=== PATIENT | male | born 1950 | race Caucasian/White ===

== ENCOUNTER 2018-01-19 05:30 | Observation (INO) | payer OTHER, MEDICARE ==
[2018-01-19] MEDS ORDERED: PHENYLEPHRINE HCL 100 MCG/ML SYR IVP PRN (05:58)
[2018-01-19] MEDS ORDERED: METOCLOPRAMIDE 10 MG/2 ML VIAL IVP PRN (05:58)
[2018-01-19] MEDS ORDERED: oxyCODONE IR 5 MG TAB PO PRN (05:58)
[2018-01-19] MEDS ORDERED: HYDROmorphONE/DILAUDID 2 MG/ML INJ IVP PRN (05:58)
[2018-01-19] MEDS ORDERED: ONDANSETRON 4 MG/2 ML VIAL IVP PRN ×2 (05:58→07:26)
[2018-01-19] MEDS ORDERED: fentaNYL 100 MCG/2 ML INJ IVP PRN (05:58)
[2018-01-19] MEDS ORDERED: PROMETHAZINE HCL 25 MG/ML INJ IVP PRN (05:58)
[2018-01-19] MEDS ORDERED: NALOXONE HCL 0.4 MG/ML INJ IVP PRN (05:58)
[2018-01-19] MEDS ORDERED: GABAPENTIN 300 MG CAP PO ONE (06:06)
[2018-01-19] MEDS ORDERED: ceFAZolin 2 GM/DEXTROSE 100 ML IV ONE (06:06)
[2018-01-19] MEDS ORDERED: ACETAMINOPHEN 500 MG TAB PO ONE (06:06)
[2018-01-19] MEDS ORDERED: LR 1,000 ML IV ONE (06:07)
[2018-01-19] MEDS ORDERED: LIDOCAINE 1% 2 ML INJ ID PRN (06:07)
[2018-01-19] MEDS ORDERED: LIDOCAINE 2% 5 ML SDV ONE (06:22)
[2018-01-19] MEDS ORDERED: MIDAZOLAM 2 MG/2 ML VIAL ONE (06:22)
[2018-01-19] MEDS ORDERED: DEXAMETHASONE 4 MG/ML VIAL ONE (06:22)
[2018-01-19] MEDS ORDERED: ROCURONIUM 50 MG/5 ML VIAL ONE (06:22)
[2018-01-19] MEDS ORDERED: ONDANSETRON 4 MG/2 ML VIAL ONE (06:22)
[2018-01-19] MEDS ORDERED: PROPOFOL 200 MG/20 ML VIAL ONE (06:22)
[2018-01-19] MEDS ORDERED: fentaNYL 250 MCG/5 ML INJ ONE (06:22)
[2018-01-19] MEDS ORDERED: ACETAMINOPHEN 500 MG TAB ONE (06:30)
[2018-01-19] MEDS ORDERED: CHLORHEXIDINE GLUC HIBICLENS 118 ML BTL TP ONE (06:39)
[2018-01-19] MEDS ORDERED: BUPIVACAINE 0.25% 30 ML SDV ONE (06:39)
[2018-01-19] MEDS ORDERED: BACITRACIN 50,000 UNITS/10 ML SYR IRR ONE (06:40)
[2018-01-19] MEDS ORDERED: THROMBIN (BOVINE) 5,000 UNIT VIAL TP ONE (06:40)
[2018-01-19] MEDS ORDERED: EPINEPHrine 1 MG/ML INJ ONE (06:40)
[2018-01-19] MEDS ORDERED: SCOPOLAMINE HYDROBROMIDE 1 MG/3 DAYS PATCH TD SCH (06:45)
--- NOTE | 2018-01-19 06:46 | PDANEPAE ---
ANE Past Medical History - Cardiovascular History Hx Hypertension: No Hx Arrhythmias: No Hx Chest Pain: No Hx Coronary Artery / Peripheral Vascular Disease: No Hx CHF / Valvular Disease: No Hx Palpitations: No - Pulmonary History Hx COPD: No Hx Asthma/Reactive Airway Disease: No Hx Recent Upper Respiratory Infection: No Hx Oxygen in Use at Home: No Hx Sleep Apnea: Yes Sleep Apnea Screening Result - Last Documented: Positive Pulmonary History Comment: DENITA USES [employer]ARD - Neurologic History Hx Cerebrovascular Accident: No Hx Seizures: No Hx Dementia: No - Endocrine History Hx Diabetes: No - Renal History Hx Renal Disorders: Yes Renal History Comment: BPH - Liver History Hx Hepatic Disorders: No - Neurological & Psychiatric Hx Hx Neurological and Psychiatric Disorders: No - Cancer History Hx Cancer: No - Congenital Disorder History Hx Congenital Disorders: No - GI History Hx Gastrointestinal Disorders: No - Other Health History Other Health History: CERVICAL STENOSIS. NT RT ARM. LIMITED ROM RT SHLDR - Chronic Pain History Chronic Pain: Yes (N/T RT UPPER ARM,CERVICAL DISCOMFORT) - Surgical History Prior Surgeries: KELLIE SHLDR SCOPES ANE Review of Systems Review of Systems: - Exercise capacity METS (RN): 6 METS ANE Patient History - Allergies Allergies/Adverse Reactions: Penicillins Allergy (Verified 01/19/18 06:39) Rash - Home Medications Home Medications: Aspirin [Aspirin 81mg (*)] 81 mg PO DAILY 01/08/18 [Last Taken 01/12/18] Finasteride [Proscar 5 MG (*)] 5 mg PO DAILY 01/08/18 [Last Taken 01/18/18] - NPO status NPO Since - Liquids (Date): 01/18/18 NPO Since - Liquids (Time): 21:00 NPO Since - Solids (Date): 01/18/18 NPO Since - Solids (Time): 21:00 - Smoking Hx Smoking Status: Never smoked ANE Labs/Vital Signs - Vital Signs Height: 175.26 cm Weight: 70.307 kg ANE Physical Exam - Airway Neck exam: FROM Mallampati Score: Class 1 Mouth exam: normal dental/mouth exam - Pulmonary Pulmonary: no respiratory distress, no rales or rhonchi, clear to auscultation - Cardiovascular Cardiovascular: regular rate and rhythym, no murmur, rub, or gallop - ASA Status ASA Status: II ANE Anesthesia Plan Anesthesia Plan: general endotracheal anesthesia
[2018-01-19] MEDS ORDERED: PROPOFOL/EMULSION 500 MG/50 ML BOTTLE IV ONE ×2 (06:49→07:53)
--- NOTE | 2018-01-19 07:10 | PDHPUP ---
History & Physical Update H&P update statement: This history and physical update is based on an assessment of the patient which was completed after admission or registration (within 24 hours), but prior to the surgery/procedure. H&P update: H&P reviewed & patient examined, no change in patient's condition since H&P completed
[2018-01-19] MEDS ORDERED: BISACODYL 10 MG SUPP PR PRN (07:26)
[2018-01-19] MEDS ORDERED: POLYETHYLENE GLYCOL 3350 17 GM PKT PO PRN (07:26)
[2018-01-19] MEDS ORDERED: diphenhydrAMINE 25 MG CAP PO PRN (07:26)
[2018-01-19] MEDS ORDERED: ONDANSETRON DISINTEGRATING 4 MG TAB PO PRN (07:26)
[2018-01-19] MEDS ORDERED: MAGNESIUM HYDROXIDE 30 ML UDCUP PO PRN (07:26)
[2018-01-19] MEDS ORDERED: HYDROmorphONE/DILAUDID 1 MG/ML INJ IVP PRN (07:26)
[2018-01-19] MEDS ORDERED: LACTULOSE 20 GM/30 ML UDCUP PO PRN (07:26)
[2018-01-19] MEDS ORDERED: METHOCARBAMOL 750 MG TAB PO PRN (07:26)
[2018-01-19] MEDS ORDERED: NS 1,000 ML IV SCH (07:30)
[2018-01-19] MEDS ORDERED: ESMOLOL HCL 100 MG/10 ML VIAL IV ONE (07:53)
[2018-01-19] MEDS ORDERED: ePHEDrine SULFATE 25 MG/5 ML SYR ONE ×2 (07:53→08:25)
--- NOTE | 2018-01-19 09:28 | POSTOPPROG ---
Post Op Note Date of Operation: 01/19/18 Surgeon: Iveth Goncalves Program Director: FABIENNE Cordero Anesthesiologist: Zohaib Perales MD Anesthesia: GET(General Endotracheal), Local (Specify) Pre-op Diagnosis: cervical stenosis C4/5 Post-op Diagnosis: cervical stenosis C4/5 Indication: RUE pain, stenosis Procedure: ACDF C4/5 Findings: see op note Inf/Abcess present in the surg proc area at time of surgery?: No Depth: Deep Incisional (Fascial) EBL: 50-100 Total fluids administered: see anesthesia record Complications: none
--- NOTE | 2018-01-19 09:30 | SOAPPROG ---
SOAP Progress Note Assessment/Plan: Post Op Visit: S: Awake and alert, NAD. Pt with expected neck pain O: AFVSS/PERRLA/EOMI no droop CN 2-12 grossly intact +lt touch 5/5 BUE/BLE = CDI neck soft and supple A/P: 67 yo male that is s/p ACDF C4/5 -orders in place -call with any questions or concerns -collar at all times -post op xrays in am -plan for dc tomorrow when clears therapies ICD10 Worksheet Patient Problems: Problems Problem Status Onset Cervical spinal stenosis Acute S/P cervical spinal fusion Acute - ICD10 Problem Qualifiers (1) Cervical spinal stenosis (2) S/P cervical spinal fusion
--- NOTE | 2018-01-19 10:02 | GOP ---
DATE OF OPERATION: 01/19/2018 SURGEON: Chacorta Goncalves MD NEUROSURGEON: Chacorta Goncalves MD SPECIAL DEPUTY SHERIFF: Shelton Cordero PA-C PREOPERATIVE DIAGNOSIS: Multilevel cervical spondylosis, right cervical radiculopathy, cervical dege nerative disk disease. POSTOPERATIVE DIAGNOSIS: Multilevel cervical spondylosis, right cervical radiculopathy, cervical deg enerative disk disease. PROCEDURE PERFORMED: Anterior cervical diskectomy with decompression and arthrodesis same level C4-5 , anterior cervical plating at C4-5, same incision bone graft harvest, placement of biomechanical int ervertebral device at C4-5, microscope. FINDINGS: Consistent with the diagnosis. SPECIMENS: None. ESTIMATED BLOOD LOSS: 50 cc. INDICATIONS: The patient is a mature gentleman who was having relentless right-sided radiating pain in his neck and shoulder, whose MRI demonstrated multilevel spondylosis at C3-4, 4-5, 5-6, 6-7. Ther e was even DDD at C2-3. He had findings throughout the cervical spine. C4-5 appeared to be the wors t level. C5-6 had a left greater than right foraminal stenosis, and C6-7 had moderate bilateral fora bernadine stenosis, and it was my feeling C4-5 was the symptomatic level. I suggested a single-level ACD F at that level. The risk of esophageal injury, carotid injury, recurrent laryngeal nerve injury, ps eudoarthrosis, adjacent segment disease, major vascular injury, nerve injury, swallowing dysfunction were all discussed. He understood these risks and he did want to proceed. DESCRIPTION OF PROCEDURE: The patient was taken to the operating room, placed in supine position. G eneral anesthesia was begun. A midline shoulder roll was placed. Care was taken to pad all points o f contact. His neck was sterilely prepped and draped in the usual fashion. We made a transverse incision in the left neck crease. The subcutaneous tissue was dissected using B ovie cautery down to the platysma. We then used a combination of sharp and blunt dissection to work our way medial to the sternocleidomastoid and lateral to the strap muscles down the prevertebral spac e. A needle was inserted in the C4-5 disk. A localizing x-ray was taken. We dissect the longus col li muscles off the spine at C4-5. There were some ventral osteophytes present, we removed these, and we used them for autologous grafting purposes. We placed distraction pins at C4-5, incised the disk , removed the disk and the cartilaginous endplates. We drilled and harvested subchondral bone to cre ate more autologous grafting material. After harvesting this autologous graft, we then sized the space and chose a 7 x 16 x 14 mm cage. It was packed and fashioned to fit in the C4-5 disk space. We then opened the posterior longitudinal li gament and decompressed the thecal sac and the neural foramen bilaterally. There was severe bilatera l foraminal stenosis. We worked a little more on the right-hand side than on the left. We got a gre at decompression. We then took the cage had been packed with autologous bone inserted at C4-5. We r emoved our distraction pin, shot a local x-ray. Gelfoam bullets were placed in the holes that remain ed. A nice fit was obtained. We then prepared the ventral surface of the vertebral body for acceptance of the plate and we chose a 19 mm plate and placed a single screw at C4, a single screw at C5. A localizing x-ray was taken. Arely sun placed the remaining 2 screws, shot a final x-ray, and locked the screws according to company speci fication and verified this with the people in the room. We then achieved meticulous hemostasis, placed some 0.25% Marcaine with epinephrine into the preverte bral space and then closed the incision in multiple layers using Vicryl sutures. Steri-Strips were a pplied the skin. The patient was reversed from anesthesia, extubated, and transferred to recovery ro in stable condition. There were no complications. COMPLICATIONS: None. INSTRUMENTATION USED: Pyron [employer] 19 mm Zevo plate and a 7 mm anatomic PEEK cage, it was 7 mm in heigh t, 14 mm deep, 16 mm wide. /[id number]/MODL
[2018-01-19] MEDS: FAMOTIDINE 20 MG TAB PO SCH ×2 (12:57→21:29)
[2018-01-19] MEDS: SENNOSIDES/DOCUSATE SODIUM TAB PO SCH ×2 (12:58→21:29)
[2018-01-19] MEDS: oxyCODONE IR 5 MG TAB PO PRN ×2 (12:58→19:11)
[2018-01-19] MEDS: FINASTERIDE 5 MG TAB PO SCH (12:58)
[2018-01-19] MEDS: ACETAMINOPHEN 500 MG TAB PO SCH ×2 (13:51→21:29)
[2018-01-19] MEDS: GABAPENTIN 300 MG CAP PO SCH ×2 (13:52→21:37)
[2018-01-19] MEDS: ceFAZolin 2 GM/DEXTROSE 100 ML IV SCH ×2 (13:52→21:30)
[2018-01-19] MEDS: TAMSULOSIN HCL 0.4 MG CAP PO SCH (15:18)
[2018-01-20] MEDS: ACETAMINOPHEN 500 MG TAB PO SCH ×2 (06:04→13:10)
[2018-01-20] MEDS: GABAPENTIN 300 MG CAP PO SCH ×2 (06:05→13:10)
[2018-01-20] MEDS ORDERED: PATCH REMOVAL 1 EA PATCH TD ONE (06:45)
--- NOTE | 2018-01-20 07:37 | NEUSURGPN ---
Date of Surgery: 01/19/18 Post Op Day: 1 Assessment/Plan: Assessment: 67 yo male that is s/p ACDF C4/5 POD #1 Plan: -s/p ACDF C4/5: doing well this am, pt with some expected neck pain -no nausea or vomiting -PT/OT pending -collar at all times -orders in place -call with any questions or concerns -post op xrays pending -plan for dc tomorrow when clears therapies -pt and understand and agree -plan for possible dc later today Subjective: Awake and alert. NAD. Eating/drinking and voiding. No f/c/n/v/d. No garcía/chest /abd or gu complaints. Objective: AFVSS/PERRLA/EOMI no droop CN 2-12 grossly intact +lt touch 5/5 BUE/BLE = CDI neck soft and supple Neuro Check Frequency: per routine Urinary Catheter in Place: No - Physician Discussed Patient with .: Sacha Patient Seen by : Sacha Neurosurgery Physical Exam - Vitals, I&O, Labs I and O 01/19/18 01/20/18 01/21/18 05:59 05:59 05:59 Intake Total 2120 Output Total 2120 200 Balance 0 -200 Weight 70.307 kg Intake: Oral (ml) 1220 IV Intake (ml) 800 IV Infused (ml) 100 ceFAZolin 2 GM/DEXTROSE 100 100 ml @ 200 mls/hr IV Q8HRS [facility] Rx#:[id number] Output: Urine (ml) 2110 200 Catheter 1750 Toilet 200 Urinal 160 200 Estimated Blood Loss (ml) 10 Other: Intake Quantity Yes Sufficient Number of Voids Toilet 1 Bladder Scan Volume (ml) 688 Urinal 999 Vital Signs Temp Pulse Resp BP Pulse Ox 36.5 C 89 16 109/70 91 L 01/20/18 03:30 01/20/18 03:30 01/20/18 03:30 01/20/18 03:30 01/20/18 03:30 ICD10 Worksheet Patient Problems: Problems Problem Status Onset Cervical spinal stenosis Acute S/P cervical spinal fusion Acute - ICD10 Problem Qualifiers (1) Cervical spinal stenosis (2) S/P cervical spinal fusion
[2018-01-20] MEDS: SENNOSIDES/DOCUSATE SODIUM TAB PO SCH (08:41)
[2018-01-20] MEDS: TAMSULOSIN HCL 0.4 MG CAP PO SCH (08:41)
[2018-01-20] MEDS: FAMOTIDINE 20 MG TAB PO SCH (08:41)
[2018-01-20] MEDS: FINASTERIDE 5 MG TAB PO SCH (08:41)
[2018-01-20] MEDS: oxyCODONE IR 5 MG TAB PO PRN ×2 (08:57→13:11)
--- NOTE | 2018-01-20 11:11 | ASMTLACE ---
LACE Length of stay for Answers: 2 days current admission Acuity / Level of Answers: No Care: Did the patient have an inpatient admission? Comorbidities - select Answers: Opioid dependence all that apply / Chronic pain Other Notes: Cervical stenosis # of Emergency department Answers: 0 visits in the last 6 months Score: 7 Date Signed: 01/20/2018 11:10 AM Electronically Signed By:ABDULKADIR Oconnell
--- NOTE | 2018-01-20 11:20 | ASMTCMCOM ---
CM Note CM Note Notes: Pt had planned surgery for cervical stenosis. Pt medically stable for d/c, no CM d/c needs identified. 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 Pt resides with spouse. Date Signed: 01/20/2018 11:19 AM Electronically Signed By:ABDULKADIR Oconnell
[2018-01-20 11:31] VITALS: BP 114/74
[2018-01-22] MEDS ORDERED: ENOXAPARIN 40 MG/0.4 ML SYR SC SCH (09:00)
== END 2018-01-20 14:15 | disposition home or self-care (01) ==
LOC: F3N 05:30
PROVIDERS: ADMIT Neurological Surgery; ATTEND Neurological Surgery
PROC: 00NW0ZZ Release Cervical Spinal Cord, Open Approach (ICD-10-PCS; principal; 2018-01-19 07:15)
PROC: B01B1ZZ Fluoroscopy of Spinal Cord using Low Osmolar Contrast (ICD-10-PCS; principal; 2018-01-19 07:15)
PROC: 4A10X4G Monitoring of Central Nervous Electrical Activity, Intraoperative, External Approach (ICD-10-PCS; principal; 2018-01-19 07:15)
PROC: 8E0WXBZ Computer Assisted Procedure of Trunk Region (ICD-10-PCS; principal; 2018-01-19 07:15)
PROC: 0RG10A0 Fusion of Cervical Vertebral Joint with Interbody Fusion Device, Anterior Approach, Anterior Column, Open Approach (ICD-10-PCS; principal; 2018-01-19 07:15)
DX: M48.02 Spinal stenosis, cervical region (principal); M50.121 Cervical disc disorder at C4-C5 level with radiculopathy; M54.5 Low back pain; G47.33 Obstructive sleep apnea (adult) (pediatric); Z88.0 Allergy status to penicillin
CPT/HCPCS: 22551; 72040; 76001; 92610; 97161; 97165; C1713; G8978; G8979; G8980; G8987; G8988; G8989; G8996; G8997; J0171; J0690; J1100; J2250; J2405; J2704; J3010